=== PATIENT | male | born 1965 | race Caucasian/White ===

== ENCOUNTER 2020-12-02 10:39 | Emergency (ER) | payer OTHER ==
[~2020-12-02] VITALS: Ht 162.6 cm; Wt 69.9 kg
[2020-12-02 10:43] VITALS: BP 139/83
--- NOTE | 2020-12-02 10:54 | NUR ---
PT AMBULATED TO BATHROOM, STEADY GAIT.
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
--- NOTE | 2020-12-02 11:10 | NUR ---
Dr. Ulloa is evaluating the patient at bedside.
--- NOTE | 2020-12-02 11:24 | NUR ---
STAT LABS DRAWN FOR RAC IV AND GIVEN TO PHLEB TO BE PROCESSED.
[2020-12-02 11:25] LABS: BASOPHILS % (AUTO) 0.6 % (0.0-2.0); EOSINOPHILS # (AUTO) 0.1 K/uL (0-0.4); EOSINOPHILS % (AUTO) 0.8 % (0.0-4.0); HEMATOCRIT 46.7 % (36-52); HEMOGLOBIN 16.1 g/dL (12.0-18.0); LYMPHOCYTES # (AUTO) 1.7 K/uL (2.0-11.5); LYMPHOCYTES % (AUTO) 24.3 % (20.5-51.1); MEAN CORPUSCULAR HEMOGLOBIN 32 pg (27-31); MEAN CORPUSCULAR HGB CONC 35 g/dL (33-37); MEAN CORPUSCULAR VOLUME 91.4 fL (80-94); MONOCYTES # (AUTO) 0.5 K/uL (0.8-1.0); MONOCYTES % (AUTO) 6.6 % (1.7-9.3); NEUTROPHILS # (AUTO) 4.8 K/uL (1.8-7.7); NEUTROPHILS % (AUTO) 67.7 % (42.2-75.2); PLATELET COUNT (AUTO) 216 K/uL (140-450); RED BLOOD CELL COUNT(AUTO) 5.11 MIL/uL (4.20-6.10); RED CELL DISTRIBUTION WIDTH 14.2 % (11.6-13.7); WHITE BLOOD COUNT (AUTO) 7.1 K/uL (4.8-10.8)
[2020-12-02 11:42] LABS: ALBUMIN 4.3 g/dL (3.4-5.0); ANION GAP 10.9 (8-16); CARBON DIOXIDE 28.3 mmol/L (21-32); POTASSIUM 4.2 mmol/L (3.5-5.1); TOTAL BILIRUBIN 0.8 mg/dL (0.0-1.0)
--- NOTE | 2020-12-02 11:43 | NUR ---
PTS URINE COLLECTED AND WALKED OVER TO LAB.
[2020-12-02 11:46] LABS: APPEARANCE,URINE HAZY (CLEAR); BILIRUBIN,URINE NEGATIVE (NEGATIVE); BLOOD, URINE NEGATIVE (NEGATIVE); COLOR,URINE YELLOW (YELLOW); LEUKOCYTE ESTERASE ,URINE NEGATIVE (NEGATIVE); NITRITE, URINE NEGATIVE (NEGATIVE); UGLUCOSE 3+ (NEGATIVE)
[2020-12-02 11:53] LABS: RBC,URINE NONE SEEN /HPF (0-5); WBC,URINE 0-5 /HPF (0-5)
--- NOTE | 2020-12-02 12:32 | NUR ---
PT RESTING IN BED, RR EVEN AND UNLABORED. BED IN LOWEST POSITION. SIDE RAIL UP X1.
--- NOTE | 2020-12-02 13:19 | NUR ---
Dr. Ulloa is reevaluating the patient at bedside.
[2020-12-02] MEDS ORDERED: CALC-870 PO (13:37)
[2020-12-02 13:50] VITALS: BP 126/74
--- NOTE | 2020-12-02 13:50 | NUR ---
Patient discharged with v/s stable. Written and verbal after care instructions given and explained. Patient alert, oriented and verbalized understanding of instructions. Ambulatory with steady gait. All questions addressed prior to discharge. ID band removed. Patient advised to follow up with PMD. Rx of MAALOX given. Patient educated on indication of medication including possible reaction and side effects. Opportunity to ask questions provided and answered.
== END 2020-12-02 13:50 | disposition home or self-care (01) ==
LOC: MED 10:39
DX: K76.9 Liver disease, unspecified (principal)
CPT/HCPCS: 36415; 76700; 80053; 81001; 83690; 84484; 85025; 87086; 93005; 99285

== ENCOUNTER 2020-12-22 11:04 | Day surgery (SDC) | payer OTHER, SELFPAY ==
[~2020-12-22] VITALS: Ht 162.6 cm; Wt 74.8 kg
[~2020-12-22 11:04] MED LIST: CALC-870 PO
[2020-12-22] MEDS ORDERED: MIDAZOLAM 5 MG/5 ML VIAL ONE (13:10)
[2020-12-22] MEDS ORDERED: fentaNYL citrate 0.05 MG/ML VIAL ONE (13:10)
[2020-12-22] MEDS ORDERED: MIDAZOLAM 2 MG/2 ML VIAL IVP ONE (13:40)
[2020-12-22] MEDS ORDERED: fentaNYL citrate 0.05 MG/ML VIAL IVP ONE (13:40)
== END 2020-12-22 15:00 | disposition home or self-care (01) ==
LOC: MDS 11:04 → MMU 11:05 → MDS 15:00
PROVIDERS: ATTEND Internal Medicine Gastroenterology
DX: Z12.11 Encounter for screening for malignant neoplasm of colon (principal); K63.5 Polyp of colon; R93.2 Abnormal findings on diagnostic imaging of liver and biliary tract; Z80.0 Family history of malignant neoplasm of digestive organs; R10.13 Epigastric pain; I10 Essential (primary) hypertension; E78.5 Hyperlipidemia, unspecified; Z79.84 Long term (current) use of oral hypoglycemic drugs; Z79.899 Other long term (current) drug therapy
CPT/HCPCS: 36415; 43239; 45385; 86677; 87426; J2250; J3010

== ENCOUNTER 2023-04-05 15:21 | Emergency (ER) | payer OTHER ==
[~2023-04-05] VITALS: Ht 162.6 cm; Wt 73.9 kg
[2023-04-05 16:00] VITALS: BP 116/71; PULSE 89; RESP 18; TEMP 98.1; O2SAT 98
[2023-04-05] MEDS ORDERED: SULF-59 PO (16:17)
[2023-04-05] MEDS ORDERED: BACI-418 TP (16:17)
--- NOTE | 2023-04-05 16:30 | NUR ---
Pts wound care given. Pt tolerated well. Puncture wound has been irrigated, cleaned and bandaged with non adhearant dressing plus guaz.
[2023-04-05 16:44] VITALS: BP 116/71; PULSE 89; RESP 18; TEMP 98.1; O2SAT 98
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
--- NOTE | 2023-04-05 16:57 | NUR ---
Pt has been seen by provider and treated.
--- NOTE | 2023-04-05 17:00 | NUR ---
Patient discharged with v/s stable. Written and verbal after care instructions given and explained. Patient verbalized understanding. Ambulatory with steady gait. All questions addressed prior to discharge. Advised to follow up with PMD.
--- NOTE | 2023-04-05 17:00 | NUR ---
Chart checked and completed. The patient's care was reviewed and supervised by SOFIA CHAPIN RN.
[2023-04-05 17:52] VITALS: O2SAT 98
== END 2023-04-05 16:44 | disposition home or self-care (01) ==
LOC: MED 15:21
DX: S91.331A Puncture wound without foreign body, right foot, initial encounter (principal); E11.9 Type 2 diabetes mellitus without complications; I10 Essential (primary) hypertension; Z79.899 Other long term (current) drug therapy; Z98.890 Other specified postprocedural states; W22.8XXA Striking against or struck by other objects, initial encounter; Y93.89 Activity, other specified; Y92.89 Other specified places as the place of occurrence of the external cause; Y99.8 Other external cause status
CPT/HCPCS: 73630; 90471; 90715; 99283

== ENCOUNTER 2023-06-12 15:40 | Emergency (ER) | payer OTHER ==
[~2023-06-12] VITALS: Ht 162.6 cm; Wt 75.7 kg
[~2023-06-12 15:40] MED LIST changes: +BACI-418 TP; -CALC-870 PO; +SULF-59 PO
[2023-06-12 15:51] VITALS: BP 120/77; PULSE 72; RESP 20; TEMP 98.2; O2SAT 97
[2023-06-12] MEDS ORDERED: IBUPROFEN 600 MG TAB PO ONE (15:55)
[2023-06-12 16:45] VITALS: O2SAT 97
[2023-06-12 17:02] VITALS: O2SAT 97
[2023-06-12 18:23] VITALS: BP 120/77; PULSE 97; RESP 20; TEMP 98.2; O2SAT 97
== END 2023-06-12 18:23 | disposition home or self-care (01) ==
LOC: MED 15:40
DX: S93.401A Sprain of unspecified ligament of right ankle, initial encounter (principal); E11.9 Type 2 diabetes mellitus without complications; I10 Essential (primary) hypertension; Z79.899 Other long term (current) drug therapy; X58.XXXA Exposure to other specified factors, initial encounter; Y93.89 Activity, other specified; Y92.89 Other specified places as the place of occurrence of the external cause; Y99.8 Other external cause status
CPT/HCPCS: 73560; 99283; Q0092